=== PATIENT | female | born 1935 | race Caucasian/White ===

== ENCOUNTER → 2017-04-23 | Day surgery (SDC) | payer MEDICARE, BC ==
[~2017-04-23] MED LIST: AMARYL PO; AMARYL2 MG; AMLODIPINE BESYL5 MG PO; ASPIRIN81 M2 PO; ATIVAN PO; CAL-CITRATE PL1 EACH PO; CALTRATE 600+D PO; CO Q-10200 MG PO; LASIX20 MG PO; LO-DOSE ASPIRIN81 M1 PO; LORAZEPAM0.5 MG PO; LOSARTAN POTASS50 MG PO; PIOGLITAZONE30 MG PO; PRAVASTATIN SOD40 MG PO; SERTRALINE HCL50 M1 PO; ZOCOR PO
--- NOTE | ~2017-04-23 | OR ---
Unit #: [id number] #: [id number] Patient: PHUONG RIOS [id number] [address] [place], [place] [address] [id number] O MR#: [id number] NAME: PHUONG RIOS. ROOM: Date of Procedure: 04/23/2017 Admission Date: 04/23/2017 Surgeon: Brannon Lee M.D. : 1935 Attending Physician: Brannon Lee M.D. Primary Care Physician: Perez Jo M.D. OPERATIVE REPORT PREOPERATIVE DIAGNOSES Back pain, radiculopathy, herniated nucleus pulposus, spondylolisthesis, spinal stenosis. POSTOPERATIVE DIAGNOSES Back pain, radiculopathy, herniated nucleus pulposus, spondylolisthesis, spinal stenosis. PROCEDURE PERFORMED Lumbar epidural steroid injection with intravenous sedation and fluoroscopic guidance for needle localization. INDICATIONS FOR PROCEDURE The patient is an 81-year-old female with return of right lower extremity greater than back pain greater than left lower extremity pain. She has known right-sided disk herniation at L4-L5 level and spondylolisthesis. There is less severe disease at multiple other spinal level. She is a poor surgical candidate. She was last treated with single epidural steroid injection in 06/2016. She did well for 7 months. Pain is return for few months. She had tried to hold off on returning for repeat epidural, told the patient that if the pain gets bad, certainly repeat injection 3 months or so is very reasonable based on her pathology, symptomatology, and treatment options. DESCRIPTION OF PROCEDURE The patient was placed in a seated position. Standard monitors were applied. 1 mg of Versed was given for sedation and anxiolysis, which were adequate. Vital signs remained stable. Sterile prep and drape then of the lumbar area was performed. The skin then at the L4 level was localized with 1% lidocaine. An 18-gauge ReNew Powertead needle was then advanced via loss of resistance technique and fluoroscopic guidance in toward the epidural space. After confirming proper positioning with fluoroscopy and radiographic contrast, 80 mg of Depo-Medrol and 4 mL of 0.5% lidocaine were deposited. The patient tolerated the procedure otherwise well and was discharged to recovery room in stable condition. Dictated by... Brannon Lee M.D. Unit #: [id number] #: [id number] Patient: PHUONG RIOS CHRISTEN/mimi TD: 04/24/2017 00:12 JOB #: [id number] OPERATIVE REPORT Page 1 of 1 X Brannon Lee MD X PROCEDURE OPERATIVE NOTE
== END | disposition home or self-care (01) ==
LOC: CCSC 08:52
DX: M51.16 Intervertebral disc disorders with radiculopathy, lumbar region (principal); M43.16 Spondylolisthesis, lumbar region; M48.06 Spinal stenosis, lumbar region; E11.9 Type 2 diabetes mellitus without complications; I10 Essential (primary) hypertension; M19.90 Unspecified osteoarthritis, unspecified site; Z85.3 Personal history of malignant neoplasm of breast; Z79.82 Long term (current) use of aspirin; Z79.899 Other long term (current) drug therapy
CPT/HCPCS: J1040; J2250

== ENCOUNTER → 2017-05-21 | Day surgery (SDC) | payer MEDICARE, BC ==
--- NOTE | ~2017-05-21 | OR ---
Unit #: [id number] #: [id number] Patient: PHUONG RIOS [id number] [address] [place], [place] [address] [id number] O MR#: [id number] NAME: PHUONG RIOS. ROOM: Date of Procedure: 05/21/2017 Admission Date: 05/21/2017 Surgeon: Brannon Lee M.D. : 1935 Attending Physician: Brannon Lee M.D. Referring Physician: Brannon Lee M.D. Primary Care Physician: Perez Jo M.D. OPERATIVE REPORT PREOPERATIVE DIAGNOSES Back pain, radiculopathy, spinal stenosis, spondylolisthesis, lumbar disk herniation. POSTOPERATIVE DIAGNOSES Back pain, radiculopathy, spinal stenosis, spondylolisthesis, lumbar disk herniation. PROCEDURE PERFORMED Lumbar epidural steroid injection with intravenous sedation and fluoroscopic guidance for needle localization. INDICATIONS FOR PROCEDURE The patient is an 81-year-old female with return of right lower extremity greater than back pain and much greater than left lower extremity pain. Workup demonstrated spondylolisthesis and disk herniation at L4-L5 level causing severe right neural foraminal stenosis in the left L5 nerve root. There is moderate to more facet disease at L5-S1 level. In 2016, epidural steroid injections helped for about 6 months with a single injection. She had repeat injection done 4 weeks ago, which resulted in significant improvement of the right leg pain. Her back is her current primary complaint especially with standing or doing chores. Based on her good partial response, pathology, symptomatology, and treatment options, we are going to proceed with a second injection today. DESCRIPTION OF PROCEDURE The patient was placed in the seated position. Standard monitors were applied. 1 mg of Versed was given for sedation and anxiolysis, which was adequate. Vital signs remained stable. Sterile prep and drape then of the lumbar area was performed. The skin then at the L4-L5 level was localized with 1% lidocaine. An 18-gauge PWAtead needle was then advanced via loss of resistance technique and fluoroscopic guidance in toward the epidural space. After confirming proper positioning with fluoroscopy and radiographic contrast, 80 mg of Depo-Medrol and 6 mL of 0.5% lidocaine were deposited. The patient tolerated the procedure otherwise well and was discharged to recovery room in stable condition. Dictated by... Brannon Lee M.D. Unit #: [id number] #: [id number] Patient: PHUONG RIOS LHP/mimi TD: 05/21/2017 17:20 JOB #: [id number] OPERATIVE REPORT Page 1 of 1 X Brannon Lee MD X PROCEDURE OPERATIVE NOTE
== END | disposition home or self-care (01) ==
LOC: CCSC 08:41
DX: M51.16 Intervertebral disc disorders with radiculopathy, lumbar region (principal); M43.16 Spondylolisthesis, lumbar region; M48.06 Spinal stenosis, lumbar region; E11.9 Type 2 diabetes mellitus without complications; I10 Essential (primary) hypertension
CPT/HCPCS: J1040; J2250

== ENCOUNTER → 2017-06-08 | Outpatient (CLI) | payer MEDICARE, BC ==
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
== END | disposition home or self-care (01) ==
LOC: SMRI 12:25
DX: M25.472 Effusion, left ankle (principal); M25.475 Effusion, left foot; S93.412A Sprain of calcaneofibular ligament of left ankle, initial encounter; M62.572 Muscle wasting and atrophy, not elsewhere classified, left ankle and foot
CPT/HCPCS: 73721